=== PATIENT | male | born 1990 | race Caucasian/White ===

== ENCOUNTER 2018-04-30 14:42 | Emergency (ER) | payer MEDICAID ==
[~2018-04-30] VITALS: Ht 182.9 cm; Wt 79.4 kg
[~2018-04-30 14:42] MED LIST: SULF1TAB60 PO; [UNRECOGNIZED DRUG - CODE] PO
[2018-04-30 15:05] VITALS: BP 119/78
[2018-04-30 15:40] LABS: Basophils # (auto) 0 uL; Eosinophils # (auto) 0.2 uL; Neutrophils # (auto) 4.1 uL; White Blood Cell 6.9 10^3/uL (4.4-10.8)
[2018-04-30 15:42] LABS: Basophils % (auto) 0.7 % (0.0-2.0); Eosinophils % (auto) 2.9 % (0.0-7.0); Hematocrit 30.9 % (41.0-53.0); Hemoglobin 9.4 g/dL (13.5-17.5); Lymphocytes % (auto) 29.5 % (10.0-50.0); Mean Corpuscular Hemoglobin 19.4 pg (28.0-32.0); Mean Corpuscular Hgb Conc. 30.4 g/dL (32.0-36.0); Mean Corpuscular Volume 63.8 fL (80.0-100.0); Monocytes # (auto) 0.6 uL; Neutrophils % (auto) 58.9 % (37.0-80.0); Nucleated Red Blood Cells % 0.1 %; Platelet Count (auto) 463 10^3/uL (140-450); Red Blood Cells 4.84 10^6/uL (4.5-5.90); Red Cell Distribution Width 16.3 % (11.8-14.3)
[2018-04-30 15:50] LABS: Albumin 2.7 g/dL (3.4-5.0); Anion Gap 7 (5-15); BUN/Creatinine Ratio 8.5; Blood Urea Nitrogen 7 mg/dL (7-18); Calcium 8.9 mg/dL (8.5-10.1); Carbon Dioxide 29 mmol/L (21-32); Chloride 102 mmol/L (98-107); GFR African American 142 mL/min; GFR Non-African American 117 mL/min; Glucose 98 mg/dL (74-106); Potassium 4.4 mmol/L (3.5-5.1); Sodium 138 mmol/L (136-145)
[2018-04-30 15:52] LABS: Lactic Acid w/Reflex 2.6 mmol/L (0.4-2.0)
[2018-04-30 15:53] LABS: Alanine Aminotransferase 15 U/L (16-61); Alkaline Phosphatase 134 U/L (45-117); Aspartate Aminotransferase 12 U/L (15-37); Bilirubin, Total 0.1 mg/dL (0.2-1.0); Total Protein 8.8 g/dL (6.4-8.2)
[2018-04-30] MEDS ORDERED: SODIUM CHLORIDE 0.9% 1,000 ML IV ONE ×2 (16:26)
[2018-04-30] MEDS ORDERED: cefTRIAXone 1GM/50ML D5W 50 ML IV ONE (16:30)
[2018-04-30] MEDS ORDERED: CLINDAMYCIN 900MG IV 50 ML IV ONE (16:30)
== END 2018-04-30 18:06 | disposition left against medical advice (07) ==
LOC: ER 14:48
DX: L03.116 Cellulitis of left lower limb (principal); L03.115 Cellulitis of right lower limb; F17.210 Nicotine dependence, cigarettes, uncomplicated; F12.90 Cannabis use, unspecified, uncomplicated; Z79.899 Other long term (current) drug therapy; Z53.29 Procedure and treatment not carried out because of patient's decision for other reasons
CPT/HCPCS: 36415; 80053; 83605; 85025; 87040

== ENCOUNTER 2021-02-02 03:07 | Emergency (ER) | payer MEDICAID ==
[~2021-02-02] VITALS: Ht 182.9 cm; Wt 83.9 kg
[2021-02-02 03:38] VITALS: BP 116/76
== END 2021-02-02 08:14 | disposition left against medical advice (07) ==
LOC: ER 03:07
DX: K04.7 Periapical abscess without sinus (principal); Z53.21 Procedure and treatment not carried out due to patient leaving prior to being seen by health care provider

== ENCOUNTER 2023-01-09 16:24 | Inpatient (IN) | payer MEDICAID ==
[~2023-01-09] VITALS: Ht 182.9 cm; Wt 88.0 kg
[2023-01-09 17:24] LABS: Basophils # (auto) 0 10 ^3/uL (0-0.2); Basophils % (auto) 0.2 % (0.0-2.0); Eosinophils # (auto) 0 10 ^3/uL (0-0.8); Hemoglobin 10.3 g/dL (13.5-17.5); Lymphocytes # (auto) 1.1 10 ^3/uL (0.4-5.4); Monocytes # (auto) 0.8 10 ^3/uL (0-1.3)
[2023-01-09 17:26] LABS: Lymphocytes % (auto) 7.8 % (10.0-50.0); Mean Corpuscular Hgb Conc. 30.4 g/dL (32.0-36.0); Mean Corpuscular Volume 59.2 fL (80.0-100.0); Monocytes % (auto) 5.4 % (0.0-12.0); Neutrophils # (auto) 12.6 10 ^3/uL (1.6-8.6); Neutrophils % (auto) 86.6 % (37.0-80.0); Red Blood Cells 5.74 10^6/uL (4.5-5.90); Red Cell Distribution Width 18.4 % (11.8-14.3); White Blood Cell 14.5 10^3/uL (4.4-10.8)
[2023-01-09 17:28] LABS: Urine Bacteria NONE SEEN /hpf (None Seen); Urine Blood Negative /uL (Negative); Urine Clarity Clear (Clear); Urine Color Yellow (Yellow); Urine Mucus MODERATE (None Seen); Urine Protein, UAD 1+ (Negative); Urine Specific Gravity 1.039 (1.001-1.035); Urine WBC 3 /hpf (0 - 3)
[2023-01-09 17:39] LABS: Amphetamine Screen, Urine Pos (NEGATIVE); Barbiturate Scree,Urine Neg (NEGATIVE); Benzodiazephine Screen, Urine Neg (NEGATIVE); Cocaine Screen, Urine Neg (NEGATIVE)
[2023-01-09 17:40] LABS: Cannabinoid Screen, Urine Pos (NEGATIVE); Opiate Scree,Urine Neg (NEGATIVE); Phencyclidine Screen, Urine Neg (NEGATIVE)
[2023-01-09 17:43] LABS: Alanine Aminotransferase 19 U/L (7-40); Albumin 4.3 g/dL (3.2-4.8); Alkaline Phosphatase 158 U/L (46-116); Anion Gap 9 (5-15); Aspartate Aminotransferase 16 U/L (13-40); BUN/Creatinine Ratio 9.7 (10.0-20.0); Bilirubin, Total 0.7 mg/dL (0.2-1.0); Blood Urea Nitrogen 9 mg/dL (9-23); Calcium 9.2 mg/dL (8.7-10.4); Carbon Dioxide 26 mmol/L (20-30); Chloride 96 mmol/L (98-107); Glucose 104 mg/dL (74-106); Potassium 4.2 mmol/L (3.5-5.1); Sodium 131 mmol/L (136-145); Total Protein 8.8 g/dL (5.7-8.2)
[2023-01-09 17:51] LABS: Lactic Acid w/Reflex 5.1 mmol/L (0.4-2.0)
[2023-01-09] MEDS ORDERED: SODIUM CHLORIDE 0.9% 1,000 ML IV ONE ×2 (18:15)
[2023-01-09] MEDS ORDERED: PIPERACILLIN-TAZO 4.5GM 100 ML IV ONE (18:15)
[2023-01-09] MEDS ORDERED: VANCOMYCIN PER PHARMACY 0 MG IV SCH ×2 (18:15→22:30)
[2023-01-09] MEDS ORDERED: SODIUM CHLORIDE 0.9% 500 ML IV ONE (18:15)
[2023-01-09 18:30] VITALS: PULSE 106; RESP 10; O2SAT 98
[2023-01-09] MEDS ORDERED: VANCOMYCIN 1GM/200ML 250 ML IV ONE ×2 (18:30→20:00)
[2023-01-09 19:30] VITALS: PULSE 110; RESP 15; O2SAT 99
[2023-01-09 19:41] LABS: Anisocytosis Slight; Hypochromia Marked; Platelet Estimate Adequate
[2023-01-09] MEDS ORDERED: MORPHINE SULFATE INJ 2 MG/ml SYRG IV PRN ×2 (21:15)
[2023-01-09] MEDS ORDERED: NITROGLYCERIN 0.4 MG SL TAB SL PRN (21:15)
[2023-01-09] MEDS ORDERED: HYDROcodone-ACET 5/325MG TAB PO PRN (21:15)
[2023-01-09] MEDS ORDERED: ACETAMINOPHEN 325 MG TAB PO PRN (21:15)
[2023-01-09] MEDS: ONDANSETRON HCL 4 MG/2 ML VIAL IV PRN (21:36)
[2023-01-10] VITALS (8 sets, daily range): BP systolic 99–111; BP diastolic 45–59; PULSE 86–105; RESP 17–21; TEMP 97.5–99.7; O2SAT 93–99
[2023-01-10] MEDS ORDERED: VANCOMYCIN 1GM/200ML 250 ML IV ONE ×2 (02:00→08:45)
[2023-01-10] MEDS: ONDANSETRON HCL 4 MG/2 ML VIAL IV PRN ×2 (02:34→21:14)
[2023-01-10] MEDS: CEFEPIME 1GM/ 50ML 50 ML IV SCH ×3 (06:02→21:00)
[2023-01-10] MEDS: ENOXAPARIN SOD 40 MG/0.4 ML SYRINGE SC SCH (09:58)
[2023-01-10 14:21] LABS: Basophils # (auto) 0 10 ^3/uL (0-0.2); Basophils % (auto) 0.2 % (0.0-2.0); Eosinophils # (auto) 0 10 ^3/uL (0-0.8); Hematocrit 30.1 % (41.0-53.0); Hemoglobin 9.2 g/dL (13.5-17.5); Lymphocytes # (auto) 0.9 10 ^3/uL (0.4-5.4); Mean Corpuscular Hemoglobin 17.8 pg (28.0-32.0); Monocytes # (auto) 0.6 10 ^3/uL (0-1.3)
[2023-01-10 14:23] LABS: Lymphocytes % (auto) 11.1 % (10.0-50.0); Mean Corpuscular Hgb Conc. 30.4 g/dL (32.0-36.0); Mean Corpuscular Volume 58.4 fL (80.0-100.0); Monocytes % (auto) 7.5 % (0.0-12.0); Neutrophils # (auto) 6.4 10 ^3/uL (1.6-8.6); Neutrophils % (auto) 81.2 % (37.0-80.0); Nucleated Red Blood Cells % 0.1 %; Red Blood Cells 5.15 10^6/uL (4.5-5.90); Red Cell Distribution Width 18.2 % (11.8-14.3); White Blood Cell 7.8 10^3/uL (4.4-10.8)
[2023-01-10 14:34] LABS: % Iron Saturation 5.7 % (20-55); Alanine Aminotransferase 16 U/L (7-40); Albumin 3.5 g/dL (3.2-4.8); Alkaline Phosphatase 141 U/L (46-116); Anion Gap 6 (5-15); Aspartate Aminotransferase 21 U/L (13-40); BUN/Creatinine Ratio 11.9 (10.0-20.0); Bilirubin, Total 0.4 mg/dL (0.2-1.0); Blood Urea Nitrogen 8 mg/dL (9-23); Calcium 8.5 mg/dL (8.5-10.1); Carbon Dioxide 25 mmol/L (20-30); Chloride 100 mmol/L (98-107); Glucose 84 mg/dL (74-106); Potassium 3.9 mmol/L (3.5-5.1); Sodium 131 mmol/L (136-145); Total Protein 7.1 g/dL (5.7-8.2)
[2023-01-10 14:37] LABS: INR 1.34 (0.9-1.15); Prothrombin Time 13.8 sec (9.3-11.8)
[2023-01-10] MEDS: VANCOMYCIN 1GM/200ML 250 ML IV SCH (19:01)
[2023-01-11] MEDS: VANCOMYCIN 1GM/200ML 250 ML IV SCH ×4 (00:31→20:23)
[2023-01-11 05:00] VITALS: BP 100/59; PULSE 88; RESP 18; TEMP 98.8; O2SAT 96
[2023-01-11] MEDS: CEFEPIME 1GM/ 50ML 50 ML IV SCH ×3 (05:47→22:11)
[2023-01-11 08:15] VITALS: PULSE 89
[2023-01-11] MEDS: ENOXAPARIN SOD 40 MG/0.4 ML SYRINGE SC SCH (08:54)
[2023-01-11] MEDS: FERROUS SULFATE 325mg EC TAB PO SCH ×2 (08:54→18:15)
[2023-01-11 09:00] VITALS: BP 104/63; PULSE 90; RESP 16; TEMP 99.4; O2SAT 97
[2023-01-11 09:39] LABS: Basophils # (auto) 0 10 ^3/uL (0-0.2); Basophils % (auto) 0.1 % (0.0-2.0); Eosinophils # (auto) 0 10 ^3/uL (0-0.8); Lymphocytes # (auto) 0.6 10 ^3/uL (0.4-5.4); Monocytes # (auto) 0.5 10 ^3/uL (0-1.3); Neutrophils # (auto) 3.9 10 ^3/uL (1.6-8.6); Neutrophils % (auto) 76.9 % (37.0-80.0); Nucleated Red Blood Cells % 0.1 %; White Blood Cell 5.1 10^3/uL (4.4-10.8)
[2023-01-11 09:41] LABS: Lymphocytes % (auto) 12.4 % (10.0-50.0); Mean Corpuscular Hemoglobin 17.7 pg (28.0-32.0); Mean Corpuscular Hgb Conc. 29.8 g/dL (32.0-36.0); Mean Corpuscular Volume 59.5 fL (80.0-100.0); Monocytes % (auto) 10.6 % (0.0-12.0); Red Cell Distribution Width 18.5 % (11.8-14.3)
[2023-01-11 10:28] LABS: Alanine Aminotransferase 15 U/L (7-40); Albumin 3.4 g/dL (3.2-4.8); Alkaline Phosphatase 147 U/L (46-116); Anion Gap 7 (5-15); Aspartate Aminotransferase 23 U/L (13-40); BUN/Creatinine Ratio 7.9 (10.0-20.0); Bilirubin, Total 0.3 mg/dL (0.2-1.0); Blood Urea Nitrogen 5 mg/dL (9-23); Calcium 8.5 mg/dL (8.5-10.1); Carbon Dioxide 24 mmol/L (20-30); Chloride 103 mmol/L (98-107); Glucose 101 mg/dL (74-106); Potassium 3.9 mmol/L (3.5-5.1); Sodium 134 mmol/L (136-145); Total Protein 6.9 g/dL (5.7-8.2)
[2023-01-11 10:30] LABS: Hematocrit 25.9 % (41.0-53.0); Hemoglobin 7.8 g/dL (13.5-17.5)
[2023-01-11 10:47] LABS: Magnesium 1.9 mg/dL (1.6-2.6)
[2023-01-11] MEDS ORDERED: FUROSEMIDE 40 MG TAB PO ONE (11:00)
[2023-01-11 13:00] VITALS: BP 111/61; PULSE 99; RESP 18; TEMP 98.8; O2SAT 94
[2023-01-11 17:12] VITALS: BP 91/48; PULSE 81; RESP 16; TEMP 98.9; O2SAT 97
[2023-01-11 20:00] VITALS: PULSE 94
[2023-01-12] VITALS (7 sets, daily range): BP systolic 94–114; BP diastolic 47–79; PULSE 86–95; RESP 15–19; TEMP 97.7–98.5; O2SAT 95–98
[2023-01-12] MEDS: VANCOMYCIN 1GM/200ML 250 ML IV SCH ×3 (03:30→20:11)
[2023-01-12] MEDS: CEFEPIME 1GM/ 50ML 50 ML IV SCH ×3 (05:19→21:23)
[2023-01-12] MEDS: FERROUS SULFATE 325mg EC TAB PO SCH ×2 (08:39→18:03)
[2023-01-12] MEDS: ENOXAPARIN SOD 40 MG/0.4 ML SYRINGE SC SCH (08:39)
[2023-01-12] MEDS ORDERED: FUROSEMIDE 40 MG TAB PO SCH (10:00)
[2023-01-12] MEDS: DOCUSATE SOD 100 MG CAP PO PRN (11:42)
[2023-01-12 13:31] LABS: Basophils # (auto) 0 10 ^3/uL (0-0.2); Eosinophils # (auto) 0 10 ^3/uL (0-0.8); Lymphocytes # (auto) 1.2 10 ^3/uL (0.4-5.4); Mean Corpuscular Hemoglobin 17.9 pg (28.0-32.0); Neutrophils # (auto) 2.7 10 ^3/uL (1.6-8.6); Nucleated Red Blood Cells % 0.1 %
[2023-01-12 13:32] LABS: Basophils % (auto) 0.5 % (0.0-2.0); Hematocrit 28.7 % (41.0-53.0); Hemoglobin 8.9 g/dL (13.5-17.5); Lymphocytes % (auto) 27.4 % (10.0-50.0); Mean Corpuscular Hgb Conc. 30.9 g/dL (32.0-36.0); Monocytes # (auto) 0.6 10 ^3/uL (0-1.3); Monocytes % (auto) 12.6 % (0.0-12.0); Neutrophils % (auto) 59.5 % (37.0-80.0); Red Blood Cells 4.95 10^6/uL (4.5-5.90); Red Cell Distribution Width 17.8 % (11.8-14.3); White Blood Cell 4.5 10^3/uL (4.4-10.8)
[2023-01-12 13:37] LABS: Alanine Aminotransferase 14 U/L (7-40); Albumin 3.5 g/dL (3.2-4.8); Alkaline Phosphatase 137 U/L (46-116); Anion Gap 3 (5-15); Aspartate Aminotransferase 17 U/L (13-40); BUN/Creatinine Ratio 8.2 (10.0-20.0); Blood Urea Nitrogen 5 mg/dL (9-23); Calcium 8.6 mg/dL (8.7-10.4); Carbon Dioxide 31 mmol/L (20-30); Chloride 101 mmol/L (98-107); Glucose 92 mg/dL (74-106); Magnesium 1.8 mg/dL (1.6-2.6); Sodium 135 mmol/L (136-145)
[2023-01-12 13:38] LABS: Bilirubin, Total 0.2 mg/dL (0.2-1.0); Total Protein 7.1 g/dL (5.7-8.2)
[2023-01-12 14:02] LABS: CRP High Sensitivity 12.62 mg/dL (<1.0)
[2023-01-13] MEDS: VANCOMYCIN 1GM/200ML 250 ML IV SCH ×2 (03:18→12:15)
[2023-01-13 05:00] VITALS: BP 91/45; PULSE 77; RESP 18; TEMP 98.2; O2SAT 98
[2023-01-13] MEDS: CEFEPIME 1GM/ 50ML 50 ML IV SCH (05:19)
[2023-01-13 07:03] LABS: Basophils # (auto) 0 10 ^3/uL (0-0.2); Basophils % (auto) 0.4 % (0.0-2.0); Eosinophils # (auto) 0 10 ^3/uL (0-0.8); Hematocrit 29.4 % (41.0-53.0); Hemoglobin 8.8 g/dL (13.5-17.5); Lymphocytes # (auto) 1.4 10 ^3/uL (0.4-5.4); Mean Corpuscular Hemoglobin 17.6 pg (28.0-32.0); Monocytes # (auto) 0.6 10 ^3/uL (0-1.3); Neutrophils # (auto) 1.6 10 ^3/uL (1.6-8.6); Nucleated Red Blood Cells % 0.2 %; White Blood Cell 3.6 10^3/uL (4.4-10.8)
[2023-01-13 07:05] LABS: Lymphocytes % (auto) 37.9 % (10.0-50.0); Mean Corpuscular Hgb Conc. 29.8 g/dL (32.0-36.0); Mean Corpuscular Volume 59.1 fL (80.0-100.0); Monocytes % (auto) 15.9 % (0.0-12.0); Neutrophils % (auto) 45.8 % (37.0-80.0); Red Blood Cells 4.97 10^6/uL (4.5-5.90); Red Cell Distribution Width 17.9 % (11.8-14.3)
[2023-01-13 07:58] LABS: Platelet Estimate Adequate
[2023-01-13 07:59] LABS: Hypochromia Moderate
[2023-01-13 08:00] VITALS: BP 94/52; PULSE 73; PULSE 83; RESP 16; TEMP 97.8; O2SAT 95
[2023-01-13 08:15] LABS: Chloride 103 mmol/L (98-107); Potassium 3.5 mmol/L (3.5-5.1); Sodium 137 mmol/L (136-145)
[2023-01-13 08:16] LABS: Anion Gap 4 (5-15); Calcium 8.7 mg/dL (8.5-10.1); Carbon Dioxide 30 mmol/L (20-30)
[2023-01-13 08:21] LABS: Glucose 94 mg/dL (74-106)
[2023-01-13 08:22] LABS: BUN/Creatinine Ratio 8.9 (10.0-20.0); Blood Urea Nitrogen < 5 mg/dL (9-23)
[2023-01-13] MEDS: FERROUS SULFATE 325mg EC TAB PO SCH (08:53)
[2023-01-13] MEDS: ENOXAPARIN SOD 40 MG/0.4 ML SYRINGE SC SCH (08:54)
[2023-01-13] MEDS: DOCUSATE SOD 100 MG CAP PO PRN (08:54)
[2023-01-13 09:00] VITALS: BP 94/52; PULSE 73; RESP 16; TEMP 97.8; O2SAT 95
[2023-01-13 09:26] LABS: Hepatitis B Surface Antigen Negative (Negative)
[2023-01-13 09:47] LABS: Hepatitis A Ab IgM Negative
[2023-01-13 09:48] LABS: Hepatitis B Core IgM Negative; Hepatitis C Antibody Negative (Negative)
[2023-01-13] MEDS ORDERED: DOXY-448 PO (12:00)
[2023-01-13 13:16] VITALS: BP 111/61; PULSE 73; RESP 16; TEMP 97.8; O2SAT 95
[2023-01-13 13:22] VITALS: BP 91/47; PULSE 91; RESP 18; TEMP 98.4; O2SAT 94
== END 2023-01-13 16:20 | disposition home health service (06) | DRG 720 ==
LOC: ER 16:24 → TELE 21:11 → TELE-WESTW 23:17
PROVIDERS: ADMIT Internal Medicine Pulmonary Disease; ATTEND Student in an Organized Health Care Education/Training Program
PROC: 05HA33Z Insertion of Infusion Device into Left Brachial Vein, Percutaneous Approach (ICD-10-PCS; principal; 2023-01-09)
PROC: B54NZZA Ultrasonography of Left Upper Extremity Veins, Guidance (ICD-10-PCS; 2023-01-09)
DX: A41.9 Sepsis, unspecified organism (principal); N17.0 Acute kidney failure with tubular necrosis; E87.1 Hypo-osmolality and hyponatremia; D50.9 Iron deficiency anemia, unspecified; F12.10 Cannabis abuse, uncomplicated; L03.115 Cellulitis of right lower limb; L97.819 Non-pressure chronic ulcer of other part of right lower leg with unspecified severity; M86.8X6 Other osteomyelitis, lower leg; S81.801A Unspecified open wound, right lower leg, initial encounter; E86.1 Hypovolemia; F17.210 Nicotine dependence, cigarettes, uncomplicated; M60.9 Myositis, unspecified; F19.10 Other psychoactive substance abuse, uncomplicated; F15.10 Other stimulant abuse, uncomplicated; L97.829 Non-pressure chronic ulcer of other part of left lower leg with unspecified severity; L03.116 Cellulitis of left lower limb; S81.802A Unspecified open wound, left lower leg, initial encounter; X58.XXXA Exposure to other specified factors, initial encounter; Y93.89 Activity, other specified; Z71.6 Tobacco abuse counseling; Y92.89 Other specified places as the place of occurrence of the external cause; Y99.8 Other external cause status; R65.20 Severe sepsis without septic shock
CPT/HCPCS: 36415; 71045; 73590; 73718; 80048; 80053; 80074; 80202; 80307; 81001; 82306; 82565; 83540; 83550; 83605; 83735; 84443; 85025; 85610; 86141; 86592; 86703; 87040; 87077; 87186; 87205; 93306; 93970; 99291; G0378; J2405; J2543

== ENCOUNTER 2024-03-05 17:06 | Emergency (ER) | payer MEDICAID ==
[~2024-03-05] VITALS: Ht 180.3 cm; Wt 73.0 kg
[~2024-03-05 17:06] MED LIST changes: +DOXY100C79 PO; -SULF1TAB60 PO
--- NOTE | 2024-03-05 17:29 | ED.PDOC ---
History of Present Illness HPI Comments 34M BIBA w/ no prior Hx associated to the c/c of OD. EMS report that they were initially called for ABD pain and N/V but when they arrived on scene the pt had pinpoint pupil and lethargic for 2 days. On scene the EMS gave the pt x2 Narcan IN and since then the pt has been A/Ox1. EMS state that the pt said that he does use medication but unknown. Through visual exam the pt has bilateral wounds anteriorly of the chins which are large as well as the right sided wound being more feathery than the left. Denies chills, fever, N/V/D, SOB, CP or other associated symptom's, modifiers, or recent injuries or sick contact at this time. Time Seen by MD: 17:15 Primary Care Provider: NONE Reviewed Notes: Nurses Notes, Data Sciences Director Notes, Medications, Allergies Allergies: Coded Allergies: NO KNOWN ALLERGIES (Unverified , 03/22/13) Home Meds Active Scripts Doxycycline (Monohydrate) (Doxycycline) 100 Mg Cap, 100 MG PO BID for 5 Days, #10 CAP Prov:ARUN MEDELLIN MD 01/13/23 Rifampin (RIFAMPIN) 300 Mg Cp, 300 MG PO BID, #20 CAP Prov:VANDA BERNARD N.P. 03/22/13 Information Source: Emergency Med Personnel Mode of Arrival: EMS Severity: Moderate Timing: Other (unknown) Duration: Since onset Prehospital treatment: Other (x2 Narcan IN) Associated signs and symptoms Altered mental status with possible substance use Past Medical History PAST MEDICAL HISTORY: Unknown Surgical History: Unknown Family History Family History: Unknown Social History Smoker: Unknown Alcohol: Unknown Drugs: Unknown Lives In: Unknown Unable to Obtain due to: Altered Mental Status All Other Systems: Reviewed and Negative Physical Exam General Appearance: Moderate Distress HEENT: Pharynx Normal, TMs Normal, Other (Pupils are somewhat pinpoint) Neck: Full Range of Motion, Non-Tender, Normal, Normal Inspection Respiratory: Chest Non-Tender, Lungs Clear, No Accessory Muscle Use, No R espiratory Distress, Normal Breath Sounds Cardiovascular: No Edema, No JVD, No Murmur, No Gallop, Normal Peripheral Pulses, Regular Rate/Rhythm Breast Exam: Deferred Gastrointestinal: No Organomegaly, Non Tender, No Pulsatile Mass, Normal Bowel Sounds, Soft Genitalia: Deferred Pelvic: Deferred Rectal: Deferred Extremities: No calf tenderness, Normal capillary refill, No pedal edema, Other (Large open wounds to the anterior tib-fib area bilaterally with drainage on the right) Musculoskeletal : Apperance: Normal Neurologic: data base design analyst II-XII nml as Tested, Motor Weakness, Other (The patient is significantly confused in somewhat lethargic) Cerebellar Function: Unable to Test Reflexes: Normal Skin: Dry, Normal Color, Warm Lymphatic: No Adenopathy Was a procedure done? Was a procedure done?: Yes Sedation Sedation?: No Intubation Indication: Altered Mental Status Prep: Preoxygenation Pretreated with: Other (Etomidate 20 mg IV push) Medicated with: Succinylcholine (100 mg IV push) Intubation Approach: Orotracheal Intubation size: cm (8.0) Differential Dx Considerations may include: Altered mental status, intracranial bleeding, substance abuse, electrolyte imbalance X-Ray, Labs, Meds, VS Vital Signs Date Time Temp Pulse Resp B/P (MAP) Pulse Ox O2 Delivery O2 Flow Rate FiO2 03/05/24 18:21 101 140/84 03/05/24 17:54 83 24 94 Room Air* 0 21 03/05/24 17:27 99.0 83 21 134/90 (105) 99 99.0 03/05/24 17:25 98.7 107 12 144/81 (102) 99 Lab Test 03/05/24 18:09 Range/Units White Blood Count 15.4 H 4.4-10.8 10^3/uL Red Blood Count 5.26 4.5-5.90 10^6/uL Hemoglobin 12.7 L 13.5-17.5 g/dL Hematocrit 38.4 L 41.0-53.0 % Mean Corpuscular Volume 73.0 L 80.0-100.0 fL Mean Corpuscular Hemoglobin 24.2 L 28.0-32.0 pg Mean Corpuscular Hemoglobin Concent 33.1 32.0-36.0 g/dL Red Cell Distribution Width 15.5 H 11.8-14.3 % Platelet Count 381 140-450 10^3/uL Mean Platelet Volume 7.9 6.9-10.8 fL Neutrophils (%) (Auto) 84.0 H 37.0-80.0 % Lymphocytes (%) (Auto) 8.9 L 10.0-50.0 % Monocytes (%) (Auto) 6.7 0.0-12.0 % Eosinophils (%) (Auto) 0.1 0.0-7.0 % Basophils (%) (Auto) 0.3 0.0-2.0 % Neutrophils # (Auto) 13.0 H 1.6-8.6 10 ^3/uL Lymphocytes # (Auto) 1.4 0.4-5.4 10 ^3/uL Monocytes # (Auto) 1.0 0-1.3 10 ^3/uL Eosinophils # (Auto) 0 0-0.8 10 ^3/uL Basophils # (Auto) 0 0-0.2 10 ^3/uL Nucleated Red Blood Cells 0.1 % Sodium Level Pending Potassium Level Pending Chloride Level Pending Carbon Dioxide Level Pending Anion Gap Pending Blood Urea Nitrogen Pending Creatinine Pending Glomerular Filtration Rate Calc Pending BUN/Creatinine Ratio Pending Serum Glucose Pending Calcium Level Pending Ammonia Pending Salicylates Level Pending Acetaminophen Level Pending Plasma/Serum Blood Alcohol Pending Current Medications Medications (Trade) Dose Ordered Sig/Ruben Route Start Time Stop Time Status Last Admin Sodium Chloride 500 ml @ 500 mls/hr Q1H ONCE IVB 03/05/24 17:30 03/05/24 18:29 DC 03/05/24 18:22 Nicardipine HCl 250 ml @ 50 mls/hr Q5H IV 03/05/24 18:00 03/05/24 18:21 IV Hep-Lock was established. The patient was somewhat hypertensive The patient's CBC shows an elevated white blood cell count is 15.4 The chemistry panel is pending The UDS is pending A Murray catheter is being placed in an NG-tube is being placed. The CT scan of the head showed: IMPRESSION: Acute intraventricular hemorrhage in the left lateral ventricle with extension to the 3rd and right lateral ventricles associated with 4 mm [id number] midline shift. No intraparenchymal hemorrhage is noted at this time. The chest x-ray is negative We contacted [facility] and they have accepted the patient to be transferred at this time Because of the intraventricular hemorrhage, are starting the patient on a nicardipine drip to control the blood pressure The patient is being transferred to [place] by air. Images Reviewed?: Images reviewed and evaluated by me Time of 1ST Reevaluation: 17:45 Reevaluation 1ST: Unchanged Patient Education/Counseling: Other (Pt is AxOx1 and is altered) Family Education/Counseling: No Family Present Departure 1 Departure Time of Disposition: 18:43 Impression: Primary Impression: Intraventricular hemorrhage Additional Impression: Altered mental status Qualified Codes: R41.82 - Altered mental status, unspecified Disposition: 51 HOSPICE/MEDICAL FACILITY Condition: Critical Critical Care Note Critical Care Time?: Yes (45 min-critical care time only) Stability Stability form required: Yes Stable for transfer: Intended for transfer, To designated facility Heart Score Heart Score: Heart Score Response (Comments) Value History N/A 0 EKG N/A 0 Age N/A 0 Risk Factors N/A 0 Troponin N/A 0 Total 0 I personally scribed for DINORAH ISIDRO MD ([email or web address]) on 03/05/24 at 17:29. Electronically submitted by Doug Aguero ([email or web address]). DINORAH ISIDRO MD Mar 05, 2024 17:29
[2024-03-05 17:54] VITALS: PULSE 83; RESP 24; O2SAT 94
--- NOTE | 2024-03-05 18:10 | DVH ---
EXAM: CT HEAD WITHOUT CONTRAST HISTORY: aloc COMPARISON: None TECHNIQUE: Axial images were obtained and reformatted in coronal and sagittal planes. All CT scans at this medical facility are performed using dose modulation techniques as appropriate t o a performed exam including the following: Automated exposure control was utilized; adjustment of th e MA and/or KV according to patient size; and use of iterative reconstruction technique. CT Dose: CTDI volume is 61.67 mGy. Dose-length product is 1091.83 mGy*cm FINDINGS: Supratentorial Region: The left lateral ventricle is filled hemorrhagic material. There is extensio n of hemorrhage to the 3rd ventricle contralateral right lateral ventricle , where small amount of he morrhage noted in the dependent part of the occipital horn of the right lateral ventricle. 4 mm left- to-right midline shift is present. Mild dilatation of the bilateral lateral ventricles is seen. Posterior Fossa: No acute abnormality. Brainstem: Unremarkable. Sellar/Suprasellar Region: Unremarkable. Ventricles, Cisterns, Sulci: Mild dilatation of the bilateral lateral ventricles. Left lateral ventr icular hemorrhage with extension to the 3rd ventricle and the right lateral ventricle. Orbits: Unremarkable. Paranasal Sinuses: Unremarkable. Mastoid Air Cells: Unremarkable. Vasculature: Unremarkable. Bones/Soft Tissues: No acute abnormality. Other: None. IMPRESSION: Acute intraventricular hemorrhage in the left lateral ventricle with extension to the 3rd and right l ateral ventricles associated with 4 mm [id number] midline shift. No intraparenchymal hemorrhage is noted at this time. Critical Result: Intracranial hemorrhage Findings discussed with Dr. Moreno, at 03/05/2024 at 06:00 PM, and acknowledged receipt and understan ding of the findings.
--- NOTE | 2024-03-05 18:12 | DVH ---
CHEST RADIOGRAPH Indication: aloc Technique: Single frontal view of the chest was obtained Comparison: XY CHEST PORTABLE on DOS: 01/10/23 FINDINGS: Lines and Tubes: None Lungs: No focal consolidation. Pleura: No effusion. No pneumothorax. Cardiomediastinal contours: Unremarkable Bones: No acute osseous abnormality. IMPRESSION: 1. No acute cardiopulmonary disease.
[2024-03-05] MEDS: SODIUM CHLORIDE 0.9% 500 ML IVB ONE (18:22)
[2024-03-05] MEDS: ETOMIDATE (2MG/ML) 20ML VIAL IV ONE ×2 (18:24→18:48)
[2024-03-05] MEDS: SUCCINYLCHOLINE CHLORIDE 20 MG/ML 10ML VIAL IV ONE ×3 (18:25→18:48)
[2024-03-05 18:33] LABS: Basophils % (auto) 0.3 % (0.0-2.0); Eosinophils # (auto) 0 10 ^3/uL (0-0.8); Lymphocytes # (auto) 1.4 10 ^3/uL (0.4-5.4); Nucleated Red Blood Cells % 0.1 %
[2024-03-05 18:35] LABS: Anion Gap 7 (5-15); Carbon Dioxide 25 mmol/L (20-31); Chloride 101 mmol/L (98-107); Potassium 3.6 mmol/L (3.5-5.1)
[2024-03-05 18:36] LABS: Basophils # (auto) 0 10 ^3/uL (0-0.2); Calcium 9.5 mg/dL (8.7-10.4); Eosinophils % (auto) 0.1 % (0.0-7.0); Hematocrit 38.4 % (41.0-53.0); Hemoglobin 12.7 g/dL (13.5-17.5); Lymphocytes % (auto) 8.9 % (10.0-50.0); Mean Corpuscular Hemoglobin 24.2 pg (28.0-32.0); Mean Corpuscular Hgb Conc. 33.1 g/dL (32.0-36.0); Monocytes % (auto) 6.7 % (0.0-12.0); Platelet Count (auto) 381 10^3/uL (140-450); Red Blood Cells 5.26 10^6/uL (4.5-5.90); Red Cell Distribution Width 15.5 % (11.8-14.3); White Blood Cell 15.4 10^3/uL (4.4-10.8)
[2024-03-05 18:41] LABS: BUN/Creatinine Ratio 11.8 (10.0-20.0); Blood Alcohol 3.3 mg/dL (<10); Blood Urea Nitrogen 9 mg/dL (9-23)
[2024-03-05 18:43] LABS: Glucose 107 mg/dL (74-106); Sodium 133 mmol/L (136-145)
[2024-03-05] MEDS: MIDAZOLAM DRIP 50 mg/50mL 50 ML IV SCH (18:47)
[2024-03-05] MEDS: MIDAZOLAM DRIP 50 mg/50mL 50 ML IV ONE (18:48)
[2024-03-05] MEDS: PROPOFOL 100 ML IV ONE (18:49)
[2024-03-05 18:50] LABS: Acetaminophen < 2.0 UG/ML (10.0-20.0); Salicylate < 3.0 mg/dL (-30)
[2024-03-05] MEDS: PROPOFOL 100 ML IV SCH (18:58)
[2024-03-05 19:07] VITALS: TEMP 98.9
[2024-03-05 19:08] VITALS: PULSE 82; RESP 16; O2SAT 97
[2024-03-05] MEDS: NOREPINEPHRINE 8 MG/250ML KIT 250 ML IV SCH (19:10)
[2024-03-05] MEDS: fentaNYL Drip 2500mCg/250mlNS 250 ML IV SCH (19:11)
[2024-03-05 19:30] VITALS: BP 90/45
--- NOTE | 2024-03-05 20:16 | DVH ---
CHEST RADIOGRAPH Indication: intubated Technique: Single frontal view of the chest was obtained Comparison: XY CHEST PORTABLE on DOS: 03/05/24, XY CHEST PORTABLE on DOS: 01/10/23 FINDINGS: Lines and Tubes: Endotracheal tube in the right mainstem bronchus recommend withdrawal 2-3 cm. Enteri c tube below the left diaphragm in the stomach. Lungs: No focal consolidation. Pleura: No effusion. No pneumothorax. Cardiomediastinal contours: Unremarkable Bones: No acute osseous abnormality. IMPRESSION: 1. Endotracheal tube in the right mainstem bronchus recommend withdrawal 2-3 cm. 2. Enteric tube in the stomach.
== END 2024-03-05 18:04 | disposition short-term general hospital (02) ==
LOC: EDBD 17:06 → ER 17:06
DX: I61.5 Nontraumatic intracerebral hemorrhage, intraventricular (principal); R41.82 Altered mental status, unspecified; Z79.899 Other long term (current) drug therapy
CPT/HCPCS: 31500; 36415; 70450; 71045; 80048; 80320; 80329; 82140; 85025; 96361; 96365; 99291; J0330; J2250; J2704

== ENCOUNTER 2024-04-27 15:43 | Emergency (ER) | payer MEDICAID ==
[~2024-04-27] VITALS: Ht 177.8 cm; Wt 77.2 kg
[2024-04-27 15:55] VITALS: BP 124/72; PULSE 64; RESP 16; TEMP 98; O2SAT 99
== END 2024-04-27 19:03 | disposition left against medical advice (07) ==
LOC: ER 15:43 → EDBD 15:43 → ER 19:03
DX: T50.901A Poisoning by unspecified drugs, medicaments and biological substances, accidental (unintentional), initial encounter (principal); Z53.21 Procedure and treatment not carried out due to patient leaving prior to being seen by health care provider; Y92.89 Other specified places as the place of occurrence of the external cause